=== PATIENT | female | born 1955 | race Caucasian/White ===

== ENCOUNTER 2020-09-11 11:24 | Inpatient (IN) ==
[2020-09-11 12:43] LABS: Basophils % 0.2 % (0.0-0.8); Hemoglobin 15.1 GM/DL (12.0-16.0); Immature Granulocytes % 0.5 %; Immature Granulocytes Absolute 0.04 #; Lymphocytes # 1.6 10*3/uL (1.4-4.0); Lymphocytes % 18.4 % (21.3-54.2); Mean Corpuscular HGB Conc 34.3 GM/DL (32-36); Mean Corpuscular Volume 88.7 FL (87-102); Mean Platelet Volume 10.7 FL (9.6-12.0); Monocytes % 4.9 % (1.7-12.7); Platelet Count 211 T/CUMM (130-400); Red Blood Count 4.96 MC/CUMM (3.8-5.5); Red Cell Distribution Width 13.7 % (9.3-17.3); White Blood Count 8.6 T/CUMM (4-12)
[2020-09-11 12:52] LABS: Albumin 3.5 G/DL (3.4-5.0); Calcium 10.1 MG/DL (8.5-10.1); Osmolality,Calculated 280.4 MOS/KG (273-304); Total Protein 7.8 G/DL (6.4-8.3)
[2020-09-11] MEDS ORDERED: HYDROmorphone 2 MG/1 ML VIAL IV STA (13:21)
[2020-09-11] MEDS ORDERED: ONDANSETRON 4 MG/2 ML VIAL IV STA (13:21)
[2020-09-11] MEDS ORDERED: SODIUM CHLORIDE 0.9% 1,000 ML IV STA (13:21)
[2020-09-11] MEDS ORDERED: DEXAMETHASONE 4 MG/1 ML VIAL IV STA (13:47)
[2020-09-11 13:53] LABS: PT Patient Result 10.7 SECS (9.8-11.9)
[2020-09-11 13:59] LABS: Ferritin 246.9 ng/ml (8-252)
[2020-09-11] MEDS ORDERED: POTASSIUM CHLORIDE 20 MEQ TABLET PO STA (15:05)
[2020-09-11] MEDS ORDERED: GLUCAGON 1 MG VIAL IM PRN (16:04)
[2020-09-11] MEDS ORDERED: PROMETHAZINE 25 MG TABLET PO PRN (16:04)
[2020-09-11] MEDS ORDERED: ONDANSETRON 4 MG/2 ML VIAL IV PRN (16:04)
[2020-09-11] MEDS ORDERED: DEXTROSE 50% 25 GM/50 ML VIAL IV PRN (16:04)
[2020-09-11] MEDS: INSULIN REGULAR 100 UNIT/ML SUBCUT SCH ×2 (18:19→20:32)
[2020-09-11] MEDS: cefTRIAXone 1,000 MG in SYRINGE 1 EACH IV SCH (18:35)
[2020-09-11] MEDS: CLORAZEPATE 3.75 MG TABLET PO SCH ×2 (18:38→20:32)
[2020-09-11] MEDS: POTASSIUM CHLORIDE INJ 20 MEQ in LACTATED RINGERS 1,000 ML IV SCH (18:38)
[2020-09-11] MEDS: AZITHROMYCIN INJ 500 MG in SODIUM CHLORIDE 0.9% 250 ML IV SCH (18:38)
[2020-09-11] MEDS: ALBUTEROL INHALER 18 GM INH SCH (18:38)
[2020-09-11] MEDS ORDERED: INFLUENZA VIRUS VACCINE 0.5 ML SYRINGE IM ONE (18:51)
[2020-09-11] MEDS ORDERED: PNEUMOCOCCAL VACCINE (13 VALENT) 0.5 ML SYRINGE IM ONE (18:51)
[2020-09-11] MEDS: ENOXAPARIN 40 MG/0.4 ML SYRINGE SUBCUT SCH (20:32)
[2020-09-11] MEDS: ASCORBIC ACID 500 MG TABLET PO SCH (20:32)
[2020-09-12] MEDS: ALBUTEROL INHALER 18 GM INH SCH ×4 (00:48→19:58)
[2020-09-12] MEDS ORDERED: PHENOL 1.4% THROAT SPRAY 177 ML BOTTLE PO PRN (04:06)
[2020-09-12] MEDS: POTASSIUM CHLORIDE INJ 20 MEQ in LACTATED RINGERS 1,000 ML IV SCH ×2 (04:41→15:21)
[2020-09-12] MEDS: guaiFENesin 200 MG/10 ML UDCUP PO PRN (04:42)
[2020-09-12 05:11] LABS: Basophils % 0.2 % (0.0-0.8); Hematocrit 41.2 VOL% (35.7-47.0); Hemoglobin 13.6 GM/DL (12.0-16.0); Immature Granulocytes % 0.5 %; Immature Granulocytes Absolute 0.03 #; Lymphocytes # 1.4 10*3/uL (1.4-4.0); Mean Corpuscular Volume 90.9 FL (87-102); Mean Platelet Volume 10.6 FL (9.6-12.0); Monocytes % 2.6 % (1.7-12.7); Neutrophils % 75.7 % (38.7-73.9); Platelet Count 203 T/CUMM (130-400); Red Blood Count 4.53 MC/CUMM (3.8-5.5); White Blood Count 6.5 T/CUMM (4-12)
[2020-09-12 05:34] LABS: Hypochromasia 1+; Lymphocytes 18 % (20-55); Microcytosis 1+; Platelet Estimate Adequate; Segmented Neutrophils 81 % (50-85); Total Cells Counted 100
[2020-09-12 05:35] LABS: Calcium 9.9 MG/DL (8.5-10.1); Osmolality,Calculated 286.3 MOS/KG (273-304)
[2020-09-12] MEDS: INSULIN REGULAR 100 UNIT/ML SUBCUT SCH ×4 (08:05→22:17)
[2020-09-12] MEDS: DEXAMETHASONE 10 MG/1 ML VIAL IV SCH (08:06)
[2020-09-12] MEDS: PANTOPRAZOLE 40 MG TABLET PO SCH (08:06)
[2020-09-12] MEDS: CLORAZEPATE 3.75 MG TABLET PO SCH ×4 (08:06→20:38)
[2020-09-12] MEDS: ZINC SULFATE 220 MG CAPSULE PO SCH (08:07)
[2020-09-12] MEDS: ASCORBIC ACID 500 MG TABLET PO SCH ×2 (08:07→20:38)
[2020-09-12] MEDS ORDERED: SODIUM CHLORIDE 0.9% 1,000 ML IV PRN (11:20)
[2020-09-12] MEDS ORDERED: REMDESIVIR 200 MG in SODIUM CHLORIDE 0.9% 210 ML IV ONE (12:00)
[2020-09-12] MEDS: AZITHROMYCIN INJ 500 MG in SODIUM CHLORIDE 0.9% 250 ML IV SCH (15:47)
[2020-09-12] MEDS: cefTRIAXone 1,000 MG in SYRINGE 1 EACH IV SCH (15:47)
[2020-09-12] MEDS: ENOXAPARIN 40 MG/0.4 ML SYRINGE SUBCUT SCH (20:38)
[2020-09-13] MEDS: POTASSIUM CHLORIDE INJ 20 MEQ in LACTATED RINGERS 1,000 ML IV SCH ×4 (00:42→21:01)
[2020-09-13] MEDS: ALBUTEROL INHALER 18 GM INH SCH ×4 (01:26→20:59)
[2020-09-13 08:43] LABS: Basophils % 0.2 % (0.0-0.8); Hematocrit 42.7 VOL% (35.7-47.0); Immature Granulocytes % 0.7 %; Immature Granulocytes Absolute 0.06 #; Lymphocytes # 1.9 10*3/uL (1.4-4.0); Lymphocytes % 21.8 % (21.3-54.2); Mean Corpuscular HGB Conc 32.8 GM/DL (32-36); Mean Corpuscular Volume 90.7 FL (87-102); Monocytes % 3.6 % (1.7-12.7); Neutrophils % 73.7 % (38.7-73.9); Platelet Count 218 T/CUMM (130-400); Red Blood Count 4.71 MC/CUMM (3.8-5.5); Red Cell Distribution Width 13.9 % (9.3-17.3); White Blood Count 8.8 T/CUMM (4-12)
[2020-09-13] MEDS: ASCORBIC ACID 500 MG TABLET PO SCH ×2 (08:51→20:57)
[2020-09-13] MEDS: PANTOPRAZOLE 40 MG TABLET PO SCH (08:51)
[2020-09-13] MEDS: DEXAMETHASONE 10 MG/1 ML VIAL IV SCH (08:51)
[2020-09-13] MEDS: CLORAZEPATE 3.75 MG TABLET PO SCH ×4 (08:51→20:57)
[2020-09-13] MEDS: INSULIN REGULAR 100 UNIT/ML SUBCUT SCH ×4 (08:51→20:57)
[2020-09-13] MEDS: ZINC SULFATE 220 MG CAPSULE PO SCH (08:52)
[2020-09-13 09:10] LABS: Calcium 9.9 MG/DL (8.5-10.1); Osmolality,Calculated 287.8 MOS/KG (273-304)
[2020-09-13] MEDS: REMDESIVIR 100 MG in SODIUM CHLORIDE 0.9% 230 ML IV SCH (09:29)
[2020-09-13] MEDS: POTASSIUM CHLORIDE 20 MEQ TABLET PO PRN ×3 (11:35→16:59)
[2020-09-13] MEDS: cefTRIAXone 1,000 MG in SYRINGE 1 EACH IV SCH (16:57)
[2020-09-13] MEDS: AZITHROMYCIN INJ 500 MG in SODIUM CHLORIDE 0.9% 250 ML IV SCH (16:57)
[2020-09-13] MEDS: ENOXAPARIN 40 MG/0.4 ML SYRINGE SUBCUT SCH (20:58)
[2020-09-14] MEDS: ALBUTEROL INHALER 18 GM INH SCH ×4 (03:38→21:03)
[2020-09-14 05:19] LABS: Alanine Aminotransferase 33 U/L (13-56); Albumin 2.5 G/DL (3.4-5.0); Alkaline Phosphatase 104 U/L (45-117); Aspartate Amino Transferase 31 U/L (0-37); Bilirubin,Total < 0.39 MG/DL (0.2-1.0); Blood Urea Nitrogen 16 MG/DL (7-18); Calcium 9.6 MG/DL (8.5-10.1); Estimated Glom Filtration Rate 89 ML/MIN; Glucose 100 MG/DL (74-106); Total Protein 6.3 G/DL (6.4-8.3)
[2020-09-14] MEDS: POTASSIUM CHLORIDE INJ 20 MEQ in LACTATED RINGERS 1,000 ML IV SCH ×2 (07:07→17:18)
[2020-09-14] MEDS: DEXAMETHASONE 10 MG/1 ML VIAL IV SCH (08:23)
[2020-09-14] MEDS: ZINC SULFATE 220 MG CAPSULE PO SCH (08:24)
[2020-09-14] MEDS: ASCORBIC ACID 500 MG TABLET PO SCH ×2 (08:24→21:03)
[2020-09-14] MEDS: CLORAZEPATE 3.75 MG TABLET PO SCH ×4 (08:24→21:04)
[2020-09-14] MEDS: PANTOPRAZOLE 40 MG TABLET PO SCH (08:24)
[2020-09-14] MEDS: INSULIN REGULAR 100 UNIT/ML SUBCUT SCH ×4 (09:24→21:03)
[2020-09-14] MEDS: REMDESIVIR 100 MG in SODIUM CHLORIDE 0.9% 230 ML IV SCH (10:12)
[2020-09-14] MEDS: cefTRIAXone 1,000 MG in SYRINGE 1 EACH IV SCH (16:31)
[2020-09-14] MEDS: AZITHROMYCIN INJ 500 MG in SODIUM CHLORIDE 0.9% 250 ML IV SCH (16:35)
[2020-09-14] MEDS: ENOXAPARIN 40 MG/0.4 ML SYRINGE SUBCUT SCH (21:03)
[2020-09-15] MEDS: ALBUTEROL INHALER 18 GM INH SCH ×4 (01:50→21:08)
[2020-09-15 05:12] LABS: Basophils % 0.3 % (0.0-0.8); Hematocrit 40.9 VOL% (35.7-47.0); Hemoglobin 13.4 GM/DL (12.0-16.0); Immature Granulocytes % 0.9 %; Immature Granulocytes Absolute 0.07 #; Lymphocytes # 1.7 10*3/uL (1.4-4.0); Lymphocytes % 22.1 % (21.3-54.2); Mean Corpuscular HGB Conc 32.8 GM/DL (32-36); Mean Corpuscular Volume 91.3 FL (87-102); Mean Platelet Volume 11.8 FL (9.6-12.0); Monocytes % 6.5 % (1.7-12.7); Neutrophils % 70.2 % (38.7-73.9); Platelet Count 232 T/CUMM (130-400); Red Blood Count 4.48 MC/CUMM (3.8-5.5); Red Cell Distribution Width 13.4 % (9.3-17.3); White Blood Count 7.7 T/CUMM (4-12)
[2020-09-15 05:33] LABS: Calcium 9.4 MG/DL (8.5-10.1); Osmolality,Calculated 291.6 MOS/KG (273-304)
[2020-09-15 05:54] LABS: Hypochromasia Slight; Microcytosis 1+; Platelet Estimate Adequate
[2020-09-15] MEDS: POTASSIUM CHLORIDE INJ 20 MEQ in LACTATED RINGERS 1,000 ML IV SCH ×2 (05:57→16:26)
[2020-09-15] MEDS: INSULIN REGULAR 100 UNIT/ML SUBCUT SCH ×4 (08:21→21:09)
[2020-09-15] MEDS: PANTOPRAZOLE 40 MG TABLET PO SCH (09:39)
[2020-09-15] MEDS: ZINC SULFATE 220 MG CAPSULE PO SCH (09:39)
[2020-09-15] MEDS: DEXAMETHASONE 10 MG/1 ML VIAL IV SCH (09:39)
[2020-09-15] MEDS: ASCORBIC ACID 500 MG TABLET PO SCH ×2 (09:39→21:08)
[2020-09-15] MEDS: CLORAZEPATE 3.75 MG TABLET PO SCH ×4 (09:39→21:08)
[2020-09-15] MEDS: lisinopriL 5 MG TABLET PO SCH (09:40)
[2020-09-15] MEDS: REMDESIVIR 100 MG in SODIUM CHLORIDE 0.9% 230 ML IV SCH (10:59)
[2020-09-15] MEDS: ACETAMINOPHEN 325 MG TABLET PO PRN (21:08)
[2020-09-15] MEDS: ENOXAPARIN 40 MG/0.4 ML SYRINGE SUBCUT SCH (21:09)
[2020-09-16] MEDS: POTASSIUM CHLORIDE INJ 20 MEQ in LACTATED RINGERS 1,000 ML IV SCH ×3 (02:00→21:21)
[2020-09-16] MEDS: ALBUTEROL INHALER 18 GM INH SCH ×4 (02:10→18:47)
[2020-09-16] MEDS: guaiFENesin 200 MG/10 ML UDCUP PO PRN (05:20)
[2020-09-16] MEDS: ACETAMINOPHEN 325 MG TABLET PO PRN (05:20)
[2020-09-16 05:52] LABS: Basophils % 0.1 % (0.0-0.8); Eosinophils % 0.1 % (0.00-10.9); Hematocrit 40.1 VOL% (35.7-47.0); Hemoglobin 13.1 GM/DL (12.0-16.0); Immature Granulocytes % 1.1 %; Immature Granulocytes Absolute 0.08 #; Lymphocytes # 1.7 10*3/uL (1.4-4.0); Lymphocytes % 22.9 % (21.3-54.2); Mean Corpuscular HGB Conc 32.7 GM/DL (32-36); Mean Corpuscular Volume 91.6 FL (87-102); Mean Platelet Volume 11.4 FL (9.6-12.0); Neutrophils % 68.8 % (38.7-73.9); Platelet Count 263 T/CUMM (130-400); Red Blood Count 4.38 MC/CUMM (3.8-5.5); Red Cell Distribution Width 13.3 % (9.3-17.3); White Blood Count 7.6 T/CUMM (4-12)
[2020-09-16 06:12] LABS: Calcium 9.5 MG/DL (8.5-10.1); Osmolality,Calculated 288.8 MOS/KG (273-304)
[2020-09-16 06:15] LABS: Band Neutrophils 1 % (0-10); Eosinophils 1 % (0-10); Hypochromasia 1+; Lymphocytes 23 % (20-55); Microcytosis 1+; Platelet Estimate Adequate; Segmented Neutrophils 71 % (50-85); Total Cells Counted 100
[2020-09-16] MEDS: INSULIN REGULAR 100 UNIT/ML SUBCUT SCH ×4 (10:13→21:22)
[2020-09-16] MEDS: DEXAMETHASONE 10 MG/1 ML VIAL IV SCH (10:15)
[2020-09-16] MEDS: ASCORBIC ACID 500 MG TABLET PO SCH ×2 (10:15→21:23)
[2020-09-16] MEDS: PANTOPRAZOLE 40 MG TABLET PO SCH (10:15)
[2020-09-16] MEDS: ZINC SULFATE 220 MG CAPSULE PO SCH (10:16)
[2020-09-16] MEDS: lisinopriL 5 MG TABLET PO SCH (10:16)
[2020-09-16] MEDS: CLORAZEPATE 3.75 MG TABLET PO SCH ×4 (10:16→21:23)
[2020-09-16] MEDS: REMDESIVIR 100 MG in SODIUM CHLORIDE 0.9% 230 ML IV SCH (10:18)
[2020-09-16] MEDS: PARoxetine 10 MG TABLET PO SCH (10:18)
[2020-09-16] MEDS: ENOXAPARIN 40 MG/0.4 ML SYRINGE SUBCUT SCH (21:22)
[2020-09-17] MEDS: ALBUTEROL INHALER 18 GM INH SCH ×3 (03:58→13:39)
[2020-09-17] MEDS: POTASSIUM CHLORIDE INJ 20 MEQ in LACTATED RINGERS 1,000 ML IV SCH ×2 (03:59→05:08)
[2020-09-17 06:42] LABS: Basophils % 0.1 % (0.0-0.8); Eosinophils % 0.3 % (0.00-10.9); Hematocrit 41.3 VOL% (35.7-47.0); Hemoglobin 13.8 GM/DL (12.0-16.0); Immature Granulocytes % 1.6 %; Immature Granulocytes Absolute 0.17 #; Lymphocytes # 2.3 10*3/uL (1.4-4.0); Lymphocytes % 21.1 % (21.3-54.2); Mean Corpuscular HGB Conc 33.4 GM/DL (32-36); Mean Platelet Volume 11.4 FL (9.6-12.0); Monocytes % 6.9 % (1.7-12.7); Platelet Count 311 T/CUMM (130-400); Red Blood Count 4.59 MC/CUMM (3.8-5.5); Red Cell Distribution Width 13.4 % (9.3-17.3); White Blood Count 10.7 T/CUMM (4-12)
[2020-09-17 06:56] LABS: Calcium 9.8 MG/DL (8.5-10.1); Osmolality,Calculated 289.7 MOS/KG (273-304)
[2020-09-17] MEDS: DEXAMETHASONE 10 MG/1 ML VIAL IV SCH (08:53)
[2020-09-17] MEDS: INSULIN REGULAR 100 UNIT/ML SUBCUT SCH ×2 (08:53→12:24)
[2020-09-17] MEDS: ASCORBIC ACID 500 MG TABLET PO SCH (08:54)
[2020-09-17] MEDS: CLORAZEPATE 3.75 MG TABLET PO SCH ×2 (08:54→13:39)
[2020-09-17] MEDS: PARoxetine 10 MG TABLET PO SCH (08:54)
[2020-09-17] MEDS: ZINC SULFATE 220 MG CAPSULE PO SCH (08:54)
[2020-09-17] MEDS: PANTOPRAZOLE 40 MG TABLET PO SCH (08:54)
[2020-09-17] MEDS: lisinopriL 5 MG TABLET PO SCH (08:54)
[2020-09-17 11:20] VITALS: BP 125/67
[2020-09-17] MEDS: ACETAMINOPHEN 325 MG TABLET PO PRN (11:29)
== END 2020-09-17 16:20 | disposition home or self-care (01) | DRG 177 ==
LOC: N.ED 11:24 → N.EDINP 16:05 → SUATTDRO 16:05 → N.2E 17:17
PROVIDERS: ADMIT Internal Medicine; ATTEND Internal Medicine